=== PATIENT | female | born 1980 | race American Indian/Alaskan Native ===

== ENCOUNTER 2019-06-28 09:32 | Emergency (ER) | payer MEDICAID ==
[2019-06-28 09:40] VITALS: BP 136/43
[2019-06-28 10:58] LABS: Hematocrit 40.6 % (30.3-42.9); Hemoglobin 13.8 gm/dl (10.1-14.3); Mean Corpuscular HGB Conc 34 % (30-34); Mean Corpuscular Volume 95 fl (79-97); Platelet Count 280 K/mm3 (140-440); Red Blood Count 4.27 M/mm3 (3.65-5.03); Red Cell Distribution Width 14.2 % (13.2-15.2)
[2019-06-28 11:21] LABS: Alanine Aminotransferase 10 units/L (7-56); Albumin 4.5 g/dL (3.9-5); BUN/Creatinine Ratio 8; Blood Urea Nitrogen 6 mg/dL (7-17); Calcium 9.1 mg/dL (8.4-10.2); Hemolysis Index 3
--- NOTE | 2019-06-28 11:33 | Emergency Department Report ---
ED Female HPI - General Chief complaint: Abdominal Pain Stated complaint: 8WKS /ABD PAIN Time Seen by Provider: 06/28/19 11:21 Source: patient, EMS Mode of arrival: Ambulatory Limitations: No Limitations - History of Present Illness Initial comments: Patient is 38 years old female 9, para 4 with a miscarriage. Patient presented to the ER complaining of lower abdominal pain started last night. Patient stated that she just found out that she is , possibly 8 weeks. Patient denied any vaginal bleeding or vaginal discharge. Patient stated that she feels very depressed. Patient stated that her symptoms started 2 weeks ago when her son was taken away from her. Patient is tearful. Patient stated that she thoughts about hurting herself last week. Patient denied any auditory or visual hallucination. MD Complaint: pelvic pain - Related Data Allergies Allergy/AdvReac Type Severity Reaction Status Date / Time Penicillins Allergy Swelling Verified 06/28/19 09:35 ED Review of Systems ROS: Stated complaint: 8WKS /ABD PAIN Other details as noted in HPI Comment: All other systems reviewed and negative Constitutional: denies: chills, fever Respiratory: denies: cough, shortness of breath, SOB with exertion, SOB at rest Cardiovascular: denies: chest pain, palpitations Gastrointestinal: abdominal pain. denies: nausea, vomiting Genitourinary: denies: discharge Psychiatric: depression, suicidal thoughts. denies: anxiety, auditory hallucinations, visual hallucinations, homicidal thoughts ED Past Medical Hx - Past Medical History Previous Medical History?: Yes Hx Psychiatric Treatment: Yes (Anxiety, Depression) Additional medical history: Miscarriage 4, Vaginal delivery x 4 - Surgical History Past Surgical History?: Yes Additional Surgical History: Abdominal surgery for hernia in stomach - Social History Smoking Status: Current Every Day Smoker Substance Use Type: None ED Physical Exam - General Limitations: No Limitations General appearance: alert, anxious - Head Head exam: Present: atraumatic, normocephalic, normal inspection - Eye Eye exam: Present: normal appearance, PERRL - ENT ENT exam: Present: normal exam, normal orophraynx, mucous membranes moist - Neck Neck exam: Present: normal inspection, full ROM. Absent: tenderness, meningismus, lymphadenopathy, thyromegaly - Respiratory Respiratory exam: Present: normal lung sounds bilaterally - Cardiovascular Cardiovascular Exam: Present: regular rate, normal rhythm, normal heart sounds - GI/Abdominal GI/Abdominal exam: Present: soft, normal bowel sounds. Absent: distended, tenderness, guarding, rebound, rigid, organomegaly, mass, bruit, pulsatile mass, hernia - Extremities Exam Extremities exam: Present: normal inspection, full ROM, normal capillary refill. Absent: tenderness, pedal edema, calf tenderness - Back Exam Back exam: Present: normal inspection, full ROM. Absent: CVA tenderness (R), CVA tenderness (L), muscle spasm, paraspinal tenderness, vertebral tenderness - Neurological Exam Neurological exam: Present: alert, oriented X3, CN II-XII intact, normal gait, reflexes normal - Psychiatric Psychiatric exam: Present: depressed, suicidal ideation. Absent: agitated, m anic, homicidal ideation - Skin Skin exam: Present: warm, intact, normal color ED Course Vital Signs 06/28/19 09:35 Temperature 98.1 F Pulse Rate 63 Respiratory 18 Rate Blood Pressure 136/43 O2 Sat by Pulse 100 Oximetry ED Medical Decision Making - Lab Data Result diagrams: 06/28/19 10:24 06/28/19 11:47 - Radiology Data Radiology results: report reviewed Referring Physician: CHRISTELLE SARMIENTO Patient Name: ADRIANA NEWMAN Date of : 1980 Sex: Female Report Date: 2019-06-28 Report Status: Finalized Findings [place] [id number] Ultrasound Report Signed Patient: ADRIANA NEWMAN MR#: [id number] : 1980 Acct:[id number] Age/Sex: 38 / F ADM Date: 06/28/19 Loc: ED Attending Dr: Ordering Physician: CHRISTELLE SARMIENTO Date of Service: 06/28/19 Procedure(s): US OB transvaginal Accession Number(s): [id number] cc: CHRISTELLE SARMIENTO US OB <= 14 weeks fetus, US OB transvaginal INDICATION / CLINICAL INFORMATION: abdominal pain and . COMPARISON: None available. FINDINGS: A single fetus of approximately 6 weeks 0 days gestational age is seen in the uterus. A heart beat was not seen on today's exam. A complex right ovarian lesion is seen measuring 2.3 cm. The left ovary is normal. A 6 mm cyst is seen in the lower uterine segment IMPRESSION: 1. Single fetus of approximately 6 weeks 0 days gestational age. A heartbeat was not seen and no heart tones could not be obtained on this examination. It may be too early to obtain the heart beat 2. 2.3 cm complex right ovarian lesion 3. 6 mm cyst in the lower uterine segment Signer Name: Kain Moreno MD FACR Signed: 06/28/2019 3:47 PM Workstation Name: [id number] Transcribed By: MS Dictated By: Kain Moreno MD Electronically Authenticated By: Kain Moreno MD Signed Date/Time: 06/28/19 1547 DD/ 1544 TD/TT: - Medical Decision Making Patient is 38 years old female 9, para 4 with a miscarriage. Patient presented to the ER complaining of lower abdominal pain started last night. Patient stated that she just found out that she is , possibly 8 weeks. Patient denied any vaginal bleeding or vaginal discharge. Patient stated that she feels very depressed. Patient stated that her symptoms started 2 weeks ago when her son was taken away from her. Patient is tearful. Patient stated that she thoughts about hurting herself last week. Patient denied any auditory or visual hallucination. Patient has been evaluated by our psychiatric team and advised patient can be followed as an outpatient. Again patient still denying any suicidal ideation. Labs reviewed and is unremarkable. Ultrasound showed a 6 week gestation was no heartbeat, possibility of early and missed is also raised. Patient advised to follow-up with her OB doctor in 2 days or to returned to the emergency room for the repeat of blood and ultrasound. Critical care attestation.: If time is entered above; I have spent that time in minutes in the direct care of this critically ill patient, excluding procedure time. ED Disposition Clinical Impression: Abdominal pain affecting Disposition: DC-01 TO HOME OR SELFCARE Is pt being admited?: No Condition: Stable Instructions: Abdominal Pain in (ED) Referrals: [facility] [Provider Group] - 3-5 Days
[2019-06-28 11:34] LABS: Bacteria,Urine 2+ /HPF (Negative); Bilirubin,Urine NEG (Negative); Blood,Urine NEG (Negative); Color,Urine Yellow (Yellow); Mucus,Urine 1+ /HPF; Protein,Urine <15 mg/dL mg/dL (Negative); Urobilinogen,Urine < 2.0 mg/dL (<2.0)
[2019-06-28 11:44] LABS: Basophils % (Manual) 0 % (0.0-1.8); Eosinophils % (Manual) 0 % (0.0-4.3); Total Cells Counted 100
[2019-06-28 11:45] LABS: Anisocytosis Few; Platelet Estimate Consistent w Auto
[2019-06-28 12:49] LABS: BUN/Creatinine Ratio 9; Blood Urea Nitrogen 6 mg/dL (7-17); Calcium 8.9 mg/dL (8.4-10.2); Hemolysis Index 5
--- NOTE | 2019-06-28 15:51 | Ultrasound Report ---
US OB <= 14 weeks fetus, US OB transvaginal INDICATION / CLINICAL INFORMATION: abdominal pain and . COMPARISON: None available. FINDINGS: A single fetus of approximately 6 weeks 0 days gestational age is seen in the uterus. A heart b eat was not seen on today's exam. A complex right ovarian lesion is seen measuring 2.3 cm. The left o vary is normal. A 6 mm cyst is seen in the lower uterine segment IMPRESSION: 1. Single fetus of approximately 6 weeks 0 days gestational age. A heartbeat was not seen and n o heart tones could not be obtained on this examination. It may be too early to obtain the feta l heart beat 2. 2.3 cm complex right ovarian lesion 3. 6 mm cyst in the lower uterine segment Signer Name: Kain Moreno MD FACR Signed: 06/28/2019 3:47 PM Workstation Name: [id number]
[2019-06-28 23:32] LABS: Amphetamine Screen,Urine PRESUMPTIVE NEGATIVE; Benzodiazepines Screen,Urine PRESUMPTIVE NEGATIVE; Cocaine Screen,Urine PRESUMPTIVE NEGATIVE; Methadone Screen,Urine PRESUMPTIVE NEGATIVE; Opiate Screen,Urine PRESUMPTIVE NEGATIVE
[2019-06-28 23:52] LABS: Cannabinoid Screen,Urine PRESUMPTIVE POSITIVE
== END 2019-06-28 16:42 | disposition home or self-care (01) ==
LOC: ED 09:32
DX: O26.891 Other specified pregnancy related conditions, first trimester (principal); R10.2 Pelvic and perineal pain; O99.341 Other mental disorders complicating pregnancy, first trimester; O99.331 Smoking (tobacco) complicating pregnancy, first trimester; F41.8 Other specified anxiety disorders; Z3A.01 Less than 8 weeks gestation of pregnancy
CPT/HCPCS: 36415; 76801; 76817; 80048; 80053; 80307; 80320; 81001; 83690; 84702; 85007; 85025; 86900; 86901; G0480

== ENCOUNTER 2019-11-23 04:41 | Outpatient (CLI) | payer MEDICAID ==
[2019-11-23 05:01] VITALS: BP 118/72
[2019-11-23] MEDS ORDERED: LACTATED RINGERS 1,000 ML IV ONE (06:25)
[2019-11-23] MEDS ORDERED: ACETAMINOPHEN 500 MG TAB PO ONE (06:25)
[2019-11-23] MEDS ORDERED: ONDANSETRON 4 MG/2 ML INJ IV ONE (06:25)
[2019-11-23] MEDS ORDERED: LACTATED RINGERS 1,000 ML ONE (06:26)
[2019-11-23] MEDS ORDERED: LACTATED RINGERS 1,000 ML IV SCH (07:00)
[2019-11-23] MEDS ORDERED: TERBUTALINE 1 MG/1 ML INJ SUB-Q ONE (09:00)
== END 2019-11-23 09:12 | disposition home or self-care (01) ==
LOC: TRG 04:41
PROVIDERS: ATTEND Obstetrics & Gynecology
DX: O26.892 Other specified pregnancy related conditions, second trimester (principal); M54.9 Dorsalgia, unspecified; R10.30 Lower abdominal pain, unspecified; O62.9 Abnormality of forces of labor, unspecified; R11.2 Nausea with vomiting, unspecified; O09.522 Supervision of elderly multigravida, second trimester; O99.612 Diseases of the digestive system complicating pregnancy, second trimester; K21.9 Gastro-esophageal reflux disease without esophagitis; O99.332 Smoking (tobacco) complicating pregnancy, second trimester; F17.200 Nicotine dependence, unspecified, uncomplicated; Z3A.27 27 weeks gestation of pregnancy
CPT/HCPCS: 59025; 96361; 96372; 96374; J2405; J3105; J7120; 96360

== ENCOUNTER 2019-11-27 23:50 | Outpatient (CLI) | payer MEDICAID ==
[2019-11-28] MEDS ORDERED: LACTATED RINGERS 500 ML IV ONE (00:07)
[2019-11-28 01:16] LABS: Bacteria,Urine 1+ /HPF (Negative); Bilirubin,Urine NEG (Negative); Blood,Urine NEG (Negative); Color,Urine Straw (Yellow); Protein,Urine <15 mg/dL mg/dL (Negative); Urobilinogen,Urine < 2.0 mg/dL (<2.0)
[2019-11-28 01:23] VITALS: BP 111/67
== END 2019-11-28 14:05 | disposition home or self-care (01) ==
LOC: TRG 23:50
PROVIDERS: ATTEND Obstetrics & Gynecology
DX: O26.893 Other specified pregnancy related conditions, third trimester (principal); R25.2 Cramp and spasm; M54.9 Dorsalgia, unspecified; R51 Headache; O62.9 Abnormality of forces of labor, unspecified; O09.523 Supervision of elderly multigravida, third trimester; O99.323 Drug use complicating pregnancy, third trimester; F12.90 Cannabis use, unspecified, uncomplicated; O99.333 Smoking (tobacco) complicating pregnancy, third trimester; F17.200 Nicotine dependence, unspecified, uncomplicated; Z3A.28 28 weeks gestation of pregnancy
CPT/HCPCS: 81001; J7120